=== PATIENT | male | born 1965 ===

== ENCOUNTER 2025-07-22 18:40 | Emergency (ER) | payer MEDICAID, SELFPAY ==
[2025-07-22 18:44] VITALS: BP 128/78; PULSE 87; RESP 16; TEMP 36.7; O2SAT 98
--- NOTE | 2025-07-22 19:29 | ED.GENADUL_ITS ---
Discharge Plan Disposition Patient Disposition: Home Condition: Stable Discharge Details Clinical Impression: Diabetic neuropathy, Cellulitis of third toe of left foot Primary Care Provider: None,None ED Provider: Gabriel Clemens Discharge Instructions Instructions: Diabetes and infections, Foot Care for Diabetics, Cellulitis (Skin Infection), Adult ED Additional Instructions: You were seen in the emergency department for your diabetic foot ulcer of your left third toe, you need to follow-up with your primary care provider if you wish to schedule IV antibiotics. I attempted to correctional classification counselor you that oral antibiotics and IV antibiotics have the same scientific distribution within the body and the oral is far preferred. Your minor skin changes and numbness are not guaranteed to be from one dose of clindamycin- and you are not appearing to have an allergic reaction. We gave you IV cefazolin and IV vancomycin- I would encourage you to keep taking your oral clindamycin in case there is complications in arranging your IV infusion visits. Please return for fever, redness spreading up the foot, nausea, weakness or other emergent concerns. Discharge Data Discharge Date/Time-TO BE ENTERED AT DEPARTURE: 07/22/25 22:37 HPI General Date/Time Provider Initiated Documentation: 07/22/25 19:05 . HPI Narrative: 60 year-old male presents to ED today by EMS with a chief complaint of acute on chronic toe infection from [facility] today where he received clindamycin in the setting of diabetic foot ulcers for a L 3rd toe lesion. Quality described as states that his oral clindamycin causes tingling and numbness, and dry skin and that it is a reaction to the medicine and also means that this medicine is not going to work- requesting IV vancomycin, no radiation to red streaking up the foot, fever, unilateral leg swelling, purulent drainage. Severity is described as mild. Palliating factors include one dose of oral clindamycin taken. Provoking factors include t2DM. Patient not anticoagulated. Related Data Allergies Allergy/AdvReac Type Severity Reaction Status Date / Time Corticosteroids Allergy itch Verified 07/22/25 18:56 (Glucocorticoids) General Stated Complaint: Recheck LUIZ: 4 Review of Systems All systems reviewed & are unremarkable except as noted in HPI and below Exam Narrative Exam Narrative: GENERAL APPEARANCE: Well-nourished, non-toxic, awake and alert, atraumatic, no acute distress. SKIN: Warm, pink, dry, mild erythema and swelling to the left third toe, no purulent drainage, there is some woody tissue at the very distal toe pad and an ulcer with some blackness in the central part that is less than 0.2 cm suspicious for ischemic ulcer complicated by mild cellulitis more proximal, left dorsalis pedis pulse 2+, no lymphadenitis HEAD: Normocephalic, atraumatic, normal hair distribution for gender/age. EYES: Normal conjunctiva, no exudates on lids/lashes. ENT: Nares patent, no circumoral cyanosis, no facial swelling NECK: Supple, trachea midline, painless cervical ROM. LUNGS/CHEST: Non-labored respirations, normal A/P diameter, symmetrical expansion, no chest wall deformity HEART (CV/PV): Regular rate, L dorsalis pedis pulse 2+, no peripheral edema, no JVD. ABDOMEN: Soft, non-distended, no guarding. MSK: Normal ROM, no swelling/deformity to bilateral UEs or LEs, moving all extremities without weakness, no cyanosis, spine midline without tenderness, normal curvature. NEURO: Mental Status AAOx4 - alert to person, place, time, events No facial droop, no forehead involvement. Motor: No focal weakness - strength 5/5 in bilateral UEs and L Es, proximal and distal, symmetric. Sensory: sensation intact to light touch globally. Gait normal: patient ambulated without ataxia into ED room. PSYCH: euthymic, cooperative, pleasant, appropriate speech Course Vital Signs Vital signs: Vital Signs Temperature 36.7 C 07/22/25 18:44 Pulse 87 07/22/25 18:44 Respiratory Rate 16 07/22/25 18:44 Blood Pressure 128/78 07/22/25 18:44 Pulse Oximetry 98 07/22/25 18:44 Temperature 36.7 C 07/22/25 18:44 Temperature Source Oral 07/22/25 18:44 Pulse 87 07/22/25 18:44 Respiratory Rate 16 07/22/25 18:44 Blood Pressure 128/78 07/22/25 18:44 Blood Pressure Position Sitting 07/22/25 18:44 Pulse Oximetry 98 07/22/25 18:44 Oxygen Delivery Method Room Air 07/22/25 18:44 Oxygen Flow Rate 0 07/22/25 18:44 Pain Level 4 07/22/25 18:44 Medical Decision Making This dictation utilizes [id number] dictation software and may contain unedited grammatical errors. 60 year-old male presents to ED today by EMS with a chief complaint of acute [facility] where he received [facility]amycin in the setting of diabetic foot ulcers for a L 3rd toe lesion. Quality described as states that his oral clindamycin causes tingling and numbness, and dry skin and that it is a reaction to the medicine and also means that this medicine is not going to work- requesting IV vancomycin, no radiation to red streaking up the foot, fever, unilateral leg swelling, purulent drainage. Severity is described as mild. Palliating factors include one dose of oral clindamycin taken. Provoking factors include t2DM. Patients' medical history: Diabetic neuropathy, type 2 diabetes mellitus, prior left second toe amputation. Family and social history: Noncontributory. Pertinent exam findings / vital signs include mild erythema and swelling to the left third toe, no purulent drainage, there is some woody tissue at the very distal toe pad and an ulcer with some blackness in the central part that is less than 0.2 cm suspicious for ischemic ulcer complicated by mild cellulitis more proximal, left dorsalis pedis pulse 2+, no lymphadenitis, afebrile nontoxic. Differential / pathologies of concern include diabetic foot ulcer, not sepsis. Diagnostic studies of: -None- counseled the patient that he just started antibiotics- no fever/toxic vitals. Interventions of: - 1 dose of cefazolin and vancomycin counseled to follow-up with his primary care provider about seeking outpatient infusions if that ow he wishes to treat his foot ulcer, patient was hostile to recommendations of continuing his oral clindamycin. I counseled him that he needs a referral to vascular surgery from his primary care provider. ED Course/Assessment/Plan: 60-year-old male who presents by EMS from urgent care where he was placed on clindamycin for diabetic foot ulcer that is acute on chronic, he has very mild cellulitis to the proximal third toe, very small distal toe pad ulceration that could be ischemic versus diabetic, he has little understanding of antibiotic distribution and concentration and is demanding IV antibiotics for entirety of his infection course, I counseled him that even on inpatient stays we do transition to p.o. antibiotics and that if he continues to p.o. clindamycin will be just as effective as far as distribution in his bloodstream, counseled that he needs to follow-up with vascular surgery he needs to try to arrange outpatient infusions for IV antibiotics with his primary care provider if that so he wishes to treat as infection, counseled on strict return criteria for any signs of spreading infection of the foot. Findings not consistent with sepsis, severe foot infection, neurovascular compromise of the foot. Disposition of cellulitis of third toe of left foot, diabetic neuropathy. Patient verbalized understanding of the plan and return to ED criteria and engaged in shared decision making. Medical Records Medical records reviewed: Yes I reviewed the patient's medical records. [facility] All Active Problems (Updated 07/22/25 @ 20:23 by PHOEBE Cortes) Cellulitis of third toe of left foot (Acute) Diabetic neuropathy (Acute) Social History Smoking/Tobacco Use Status: Never Smoking risk assessment performed?: Yes Alcohol Intake: never Substance use type: does not use Housing: homeless
[2025-07-22] MEDS: ceFAZolin 2 GM/50 ML BAG IVPB (19:50)
[2025-07-22 21:09] VITALS: BP 134/76; PULSE 77; RESP 16; O2SAT 98
--- NOTE | 2025-07-22 21:59 | NUR.NOTE ---
Provided foot care and dilute betadine soak to left foot and cleaned with a silicone skin wipe.
== END 2025-07-22 22:37 | disposition home or self-care (01) ==
PROVIDERS: Emergency Provider Physician Assistant
DX: L03.032 Cellulitis of left toe (principal); E11.40 Type 2 diabetes mellitus with diabetic neuropathy, unspecified
CPT/HCPCS: 96365; 96366; 96367; 99284; 99283; J0690; J3373

== ENCOUNTER 2025-07-23 14:05 | Outpatient (CLI) | payer MEDICAID, SELFPAY ==
--- NOTE | 2025-07-23 12:53 | DI.RAD_ITS ---
Exam(s) XR TOE LT SECOND EXAM: XR TOE LT SECOND CLINICAL HISTORY: DIABETIC ULCER E11.621 PRESSURE ULCER LEFT FOOT L97.529 ? OSTEOMYELITIS. TECHNIQUE: 2D digital imaging was performed. Three views. COMPARISON: No exams were available for comparison FINDINGS: BONES: No acute fracture is present. Resection of the 2nd toe to the level of the mid proximal phalanx. No bony destructive lesion is seen. JOINTS: No dislocation present. SOFT TISSUE: Normal. IMPRESSION: Resection of the 2nd toe to the level of the mid fracture of phalanx. No visible bony erosions. DATA REPOSITORY: RADIATION DOSE DELIVERED:
== END 2025-07-23 14:25 ==
PROVIDERS: PCP Physician Assistant; Visit Provider Physician Assistant
DX: E11.621 Type 2 diabetes mellitus with foot ulcer (principal); L97.529 Non-pressure chronic ulcer of other part of left foot with unspecified severity
CPT/HCPCS: 73660

== ENCOUNTER 2025-07-29 14:18 | Outpatient (CLI) | payer MEDICAID, SELFPAY ==
--- NOTE | 2025-07-29 | DI.RAD_ITS ---
Exam(s) XR TOE LT THIRD EXAM: XR TOE LT THIRD CLINICAL HISTORY: DIABETIC ULCER TOE LT FOOT, TYPE 2 DM, LTD BREAKDOWN SKIN, L97.871. TECHNIQUE: 2D digital imaging was performed. Three views. COMPARISON: CR XR TOE LT SECOND from 07/23/2025 FINDINGS: BONES: Prior amputation of the 2nd toe with the base of the proximal phalanx remaining. No erosion. No acute fracture is present. No visible bony destruction of the distal phalanx of the 3rd toe. JOINTS: No dislocation present. SOFT TISSUE: Soft tissue swelling and ulcer noted at the distal 3rd toe. IMPRESSION: Soft tissue swelling and ulcer of the 3rd toe. No visible bony destructive lesion. DATA REPOSITORY: RADIATION DOSE DELIVERED:
== END 2025-07-29 14:38 ==
PROVIDERS: PCP Physician Assistant; Visit Provider Physician Assistant
DX: L97.521 Non-pressure chronic ulcer of other part of left foot limited to breakdown of skin (principal)
CPT/HCPCS: 73660

== ENCOUNTER 2025-08-03 00:06 | Outpatient (CLI) | payer MEDICAID, SELFPAY ==
--- NOTE | 2025-08-03 14:14 | DI.RAD_ITS ---
Exam(s) XR FOOT LT COMPLETE EXAM: XR FOOT LT COMPLETE CLINICAL HISTORY: Left foot pain,m79.672. TECHNIQUE: 2D digital imaging was performed. COMPARISON: CR XR TOE LT THIRD from 07/29/2025 FINDINGS: 3 views No evidence of acute fracture nor diastasis of the Lisfranc joint. Hallux valgus noted. Amputation of the 2nd toe at the level of the neck of the proximal phalanx is again noted. The amputation bone age appears sharp with no evidence of obvious osteomyelitis and there is no radiopaque foreign body nor gas in the soft tissues at this level. Otherwise there are moderate degenerative changes in the great toe metatarsophalangeal joint. Other articulations appear unremarkable. Prominent inferior calcaneal spur is noted as is an enthesophyte on the posterior calcaneus Achilles insertion site. IMPRESSION: Amputated 2nd toe bone edge appear sharp with no radiographic evidence of osteomyelitis. There are no fractures. DATA REPOSITORY: RADIATION DOSE DELIVERED:
--- NOTE | 2025-08-03 14:14 | DI.RAD_ITS ---
Exam(s) XR FOOT RT COMPLETE EXAM: XR FOOT RT COMPLETE CLINICAL HISTORY: Right foot pain,m79.671. TECHNIQUE: 2D digital imaging was performed. COMPARISON: CR XR FOOT LT COMPLETE from 08/03/2025 FINDINGS: 3 views no evidence of fracture nor diastasis of the Lisfranc joint. Mild hallux valgus. Mild degenerative changes in the great toe metatarsophalangeal joint. No evidence of osteomyelitis. No radiopaque foreign bodies. There is a prominent inferior calcaneal spur, similar to the opposite side. There is also a similar- appearing enthesophyte on the posterior calcaneus Achilles tendon insertion site. IMPRESSION: No acute osseous findings in the right foot. DATA REPOSITORY: RADIATION DOSE DELIVERED:
== END 2025-08-03 00:26 ==
LOC: DI 00:06
PROVIDERS: PCP Physician Assistant; Visit Provider Podiatrist
DX: M79.672 Pain in left foot (principal); M79.671 Pain in right foot
CPT/HCPCS: 73630

== ENCOUNTER 2025-08-06 15:09 | Outpatient (REF) | payer MEDICAID, SELFPAY ==
[2025-08-06 19:26] LABS: COMMENT (LAB VIEW ONLY) 120.08 mg/dL; Microalb ug/mg Crea 4.6 ug/mg Cr
== END 2025-08-06 15:10 | disposition home or self-care (01) ==
LOC: NCHCN 15:09
PROVIDERS: PCP Physician Assistant; Visit Provider Physician Assistant
DX: E11.8 Type 2 diabetes mellitus with unspecified complications (principal)
CPT/HCPCS: 82043; 82570

== ENCOUNTER 2025-08-16 14:53 | Emergency (ER) | payer MEDICAID, SELFPAY ==
[2025-08-16 14:54] VITALS: BP 144/85; PULSE 96; RESP 18; TEMP 36.8; O2SAT 96
--- NOTE | 2025-08-16 15:16 | ED.GENADUL_ITS ---
Discharge Plan Disposition Patient Disposition: Home Discharge Details Clinical Impression: Diabetic neuropathy Primary Care Provider: Francisco Martinez ED Provider: Gabriel Chance Home Meds and New Rx's Prescriptions: No Action insulin NPH isoph U-100 human 100 unit/mL cartridge 20 unit subcut DAILY Patient Comments: states he takes 16-18 units Discharge Instructions Instructions: Nerve damage caused by diabetes Additional Instructions: Follow-up with your compressor operator portable this coming week for recheck. Return if you have any problems. HPI General Mode of arrival: EMS . Date/Time Provider Initiated Documentation: 08/16/25 14:57 . HPI Narrative: This is a 60-year-old male presenting to the emergency department with a chief complaint of abnormal sensation in his right great toe. Patient states that his right toe felt funny and he was worried that there may be reduction in blood supply. He has a history of diabetic neuropathy and a toe amputation in the past. He states that he is working hard on his control of his diabetes. His last A1c was 8.0. He states that he has not had any recent injuries. No fevers. He is followed by podiatry. No fevers. No rash. No vomiting. No diarrhea. No dysuria. Related Data Home Medications ?Medication ?Instructions ?Recorded ?Confirmed insulin NPH isoph U-100 human 100 20 unit subcut DAILY 08/03/25 08/16/25 unit/mL subcutaneous cartridge Allergies Allergy/AdvReac Type Severity Reaction Status Date / Time Penicillins Allergy Unknown Unknown Verified 08/16/25 14:56 Corticosteroids Allergy itch Verified 08/16/25 14:56 (Glucocorticoids) General Stated Complaint: Vascular LUIZ: 4 Review of Systems All systems reviewed & are unremarkable except as noted in HPI and below Constitutional Constitutional: Reports system reviewed and no additional complaints, except as documented, Denies fever(s), Denies weakness and Denies weight loss Eyes Eyes: Denies blurry vision ENT Ears, Nose, Mouth, and Throat: Denies sore throat Cardiovascular Cardiovascular: Denies chest pain, Denies palpitations and Denies dyspnea Respiratory Respiratory: Denies cough, Denies dyspnea and Denies wheezing Gastrointestinal Gastrointestinal: Denies abdominal pain, Denies diarrhea, Denies nausea and Denies vomiting Genitourinary Genitourinary: Denies hematuria and Denies dysuria Musculoskeletal Musculoskeletal: Denies back pain, Denies arthralgias and Denies numbness Comments: Abnormal sensation of the right great toe Neurologic Neurologic: Denies numbness and Denies weakness Psychiatric Psychiatric: Denies suicidal ideation Endocrine Endocrine: Denies palpitations Allergic/Immunologic Allergic/Immunologic: Denies wheezing Exam Const General: no acute distress and well groomed HENMT Mouth: oral mucosae normal and moist mucous membranes Throat: posterior oropharynx normal Eyes Conjunctivae: conjunctivae normal Sclera: sclerae normal Neck Neck: full ROM and No JVD Resp Effort & Inspection: normal respiratory effort Auscultation: clear to auscultation bilaterally Cardio Rate: regular rate Rhythm: regular rhythm Heart Sounds: no murmurs GI Palpation: soft and nontender Skin General skin exam: no rashes or lesions noted Neuro General: patient alert and patient oriented x3 Extrem General: normal to inspection and full ROM Other: Right great toe has diminished sensation which patient reports is baseline. Cap refills less than 2 seconds. There is no erythema or induration. Psych Appearance: grossly normal Mental Status: mental status grossly normal Speech and Movement: speech and movement normal Affect: normal affect Thought Process: normal Course Vital Signs Vital signs: Vital Signs Temperature 36.8 C 08/16/25 14:54 Pulse 96 H 08/16/25 14:54 Respiratory Rate 18 08/16/25 14:54 Blood Pressure 144/85 H 08/16/25 14:54 Pulse Oximetry 96 08/16/25 14:54 Temperature 36.8 C 08/16/25 14:54 Temperature Source Tympanic 08/16/25 14:54 Pulse 96 H 08/16/25 14:54 Respiratory Rate 18 08/16/25 14:54 Blood Pressure 144/85 H 08/16/25 14:54 Blood Pressure Position Sitting 08/16/25 14:54 Pulse Oximetry 96 08/16/25 14:54 Oxygen Delivery Method Room Air 08/16/25 14:54 Oxygen Flow Rate 0 08/16/25 14:54 Pain Level 0 08/16/25 14:54 Medical Decision Making This is a 60-year-old male presenting to the emergency department with a chief complaint of abnormal sensation in the right great toe. The patient was seen and examined by me. Old charts were reviewed and nursing notes were reviewed. The patient had a similar presentation approximately 1 month ago. That evaluation was unremarkable. Labs are reassuring. There is no signs of ischemia or infection at this time. I do not feel that the patient requires any further intervention. He is to follow-up with his compressor operator portable as planned. Quality:SDOH Health Related Social Needs: Health related social needs risk of homeless food inse curity house/econ circumstance Health related social needs details currently homeless , living at [facility] in [place], uses [employer] for transportation and utilizing [employer] PFSH All Active Problems (Updated 08/16/25 @ 15:57 by Gabriel Chance MD) Non-healing ulcer of left foot (Acute) Ulcer of left foot with fat layer exposed (Acute) Cellulitis of third toe, left (Acute) Bilateral foot pain (Acute) Paranoid delusion (Acute) Toe ulcer (Acute) T2DM (type 2 diabetes mellitus) (Acute) Cellulitis of third toe of left foot (Acute) Diabetic neuropathy (Acute) Social History Smoking/Tobacco Use Status: Never Smoking risk assessment performed?: Yes Alcohol Intake: never Substance use type: does not use Housing: homeless
[2025-08-16 15:30] LABS: HCT 48.0 % (40.0-50.0); HGB 15.9 g/dL (13.5-17.5); MCH 28.0 pg (27.0-33.0); MCHC 33.1 % (32.0-36.0); MCV 85 fL (80-95); MPV 9.3 fL (8.0-11.0); Platelet Count 159 10^3/uL (130-400); RBC 5.68 10^6/uL (4.36-5.78); RDW 12.6 % (11.8-14.1); RDW-SD 39.1 fL; WBC 5.79 10^3/uL (4.4-10.8)
[2025-08-16 15:43] LABS: Anion Gap 7.1 mmol/L (3-11); BUN 11 mg/dL (7-18); CO2 30.9 mmol/L (21.0-32.0); Calcium 9.0 mg/dL (8.5-10.1); Chloride 102 mmol/L (98-107); Estimated GFR 77.33 (mL/min/1.73m2); Glucose 121 mg/dL (74-106); Potassium 4.1 mmol/L (3.5-5.1); Sodium 140 mmol/L (136-145)
[2025-08-16 16:00] VITALS: BP 134/87; PULSE 81; O2SAT 99
== END 2025-08-16 16:00 | disposition home or self-care (01) ==
PROVIDERS: Emergency Provider Emergency Medicine; PCP Physician Assistant
DX: E11.40 Type 2 diabetes mellitus with diabetic neuropathy, unspecified (principal); Z59.01 Sheltered homelessness; E11.69 Type 2 diabetes mellitus with other specified complication
CPT/HCPCS: 99283 ×2; 36415; 80048; 85027; 83605

== ENCOUNTER 2025-09-25 09:22 | Outpatient (CLI) | payer MEDICAID, SELFPAY ==
[2025-09-25 09:55] LABS: Hemoglobin A1C 7.3 % (<5.7)
[2025-09-25 10:15] LABS: ALT 27 U/L (16-63); AST 15 U/L (15-37); Albumin 3.9 g/dL (3.4-5.0); Alkaline Phosphatase 89 U/L (46-116); Anion Gap 7.1 mmol/L (3-11); BUN 14 mg/dL (7-18); Bilirubin, Total 0.4 mg/dL (0.2-1.0); CO2 30.9 mmol/L (21.0-32.0); Calcium 9.1 mg/dL (8.5-10.1); Chloride 100 mmol/L (98-107); Cholesterol 223 mg/dL (<200); Glucose 156 mg/dL (74-106); HDL Cholesterol 31 mg/dL (>or=40); Potassium 4.3 mmol/L (3.5-5.1); Sodium 138 mmol/L (136-145); Total Protein 8.0 g/dL (6.4-8.2)
[2025-09-25 17:37] LABS: PSA, Screening 1.6 ng/mL (<=3.5)
== END 2025-09-25 09:23 | disposition home or self-care (01) ==
PROVIDERS: PCP Physician Assistant; Visit Provider Physician Assistant
DX: E11.8 Type 2 diabetes mellitus with unspecified complications (principal); Z12.5 Encounter for screening for malignant neoplasm of prostate
CPT/HCPCS: 36415; 80053; 80061; 84153; 83036